=== PATIENT | female | born 1995 | race Caucasian/White ===

== ENCOUNTER 2018-09-26 22:13 | Inpatient (IN) | payer MEDICAID, OTHER ==
[~2018-09-26] VITALS: Ht 160 cm; Wt 75.7 kg
[2018-09-26 23:25] VITALS: BP 107/73
[2018-09-27 01:30] VITALS: BP 101/63
[2018-09-27] MEDS ORDERED: PLEASE ENTER HEIGHT AND WEIGHT MC SCH (01:30)
[2018-09-27] MEDS ORDERED: PLEASE ENTER ALLERGIES MC SCH (01:30)
[2018-09-27] MEDS ORDERED: hydrALAzine 20 MG/ML, 1ML IVPush PRN (01:30)
[2018-09-27] MEDS ORDERED: BISACODYL 10 MG SUPP PR PRN (01:30)
[2018-09-27] MEDS ORDERED: GABAPENTIN 300 MG CAPSULE PO PRN (01:30)
[2018-09-27] MEDS ORDERED: ONDANSETRON 2MG/ML, 2ML IVPush PRN (01:30)
[2018-09-27] MEDS ORDERED: DOCUSATE 100 MG CAPSULE PO PRN (01:30)
[2018-09-27] MEDS ORDERED: HYDROcodone/APAP 5/325 TABLET PO PRN (01:30)
[2018-09-27] MEDS ORDERED: morphine SULFATE 10 MG/ML, 1ML IVPush PRN (01:30)
[2018-09-27] MEDS ORDERED: ONDANSETRON ODT 4 MG PO PRN (01:30)
[2018-09-27] MEDS ORDERED: POLYETHYLENE GLYCOL 17 GM PACKET PO PRN (01:30)
[2018-09-27] MEDS: HEPARIN 5,000 UNITS/ML, 1ML SQ SCH ×3 (01:30→17:19)
[2018-09-27] MEDS ORDERED: ACETAMINOPHEN 325 MG TABLET ONE (01:43)
[2018-09-27] MEDS: SODIUM CHLORIDE 0.9% 1,000 ML IV SCH ×4 (01:55→23:15)
[2018-09-27] MEDS: ACETAMINOPHEN 325 MG TABLET PO PRN ×3 (01:55→21:50)
[2018-09-27] MEDS: CEFTRIAXONE PMX 1GM/50ML 50 ML IV SCH (02:04)
[2018-09-27 02:28] LABS: BASOPHILS # (AUTO) 0.01 x10^3/uL (0-0.1); BASOPHILS % (AUTO) 0 % (0-1); EOSINOPHILS % (AUTO) 0 % (1-7); LYMPHOCYTES # (AUTO) 0.71 x10^3/uL (1-3.4); LYMPHOCYTES % (AUTO) 10 % (22-44); MD NO; MEAN CORPUSCULAR HEMOGLOBIN 29.4 pg (27.0-34.8); MEAN CORPUSCULAR HGB CONC 34.1 g/dL (32.4-35.8); MEAN CORPUSCULAR VOLUME 86.3 fL (80-100); MEAN PLATELET VOLUME 8.2 fL (7.4-10.4); MONOCYTES # (AUTO) 0.35 x10^3/uL (0.2-0.8); MONOCYTES % (AUTO) 5 % (2-9); NEUTROPHILS # (AUTO) 5.84 x10^3/uL (1.8-6.8); NEUTROPHILS % (AUTO) 85 % (42-75); PLATELET COUNT 210 x10^3/uL (130-400); RED BLOOD COUNT 4.24 x10^6/uL (3.82-5.3); RED CELL DISTRIBUTION WIDTH 13.4 % (9.6-15.2)
[2018-09-27 02:40] LABS: ALBUMIN 3.2 g/dL (3.4-5.0); ANION GAP 9 mmol/L (5-15); CALCIUM 7.8 mg/dL (8.5-10.1); CHLORIDE 111 mmol/L (98-107)
[2018-09-27 02:43] LABS: ALANINE AMINOTRANSFERASE 13 U/L (12-78); ALKALINE PHOSPHATASE 46 U/L (45-117); BILIRUBIN,TOTAL 0.3 mg/dL (0.2-1.0); CHOL/HDL RATIO 2.5; CHOLESTEROL, TOTAL 142 mg/dL (140-239); CREATININE 0.82 mg/dL (0.55-1.02); HDL CHOL % 39 % (28-40); HDL CHOLESTEROL (DIRECT) 56 mg/dL (40-60); LDL CHOLESTEROL,CALCULATED 73 mg/dL (54-169); LDL/HDL RATIO 1.3 (0.5-3.0); TOTAL PROTEIN 6.2 g/dL (6.4-8.2); TRIGLYCERIDES 66 mg/dL (50-200); VLDL CHOLESTEROL 13 mg/dL (0-25)
[2018-09-27 02:45] LABS: CREATINE KINASE, TOTAL 50 U/L (26-192); FREE T4 (FREE THYROXINE) 1.11 ng/dL (0.76-1.46)
[2018-09-27 02:50] LABS: THYROID STIMULATING HORMONE 0.567 mIU/L (0.358-3.740)
[2018-09-27] MEDS ORDERED: SPIR25TA5 PO (02:59)
[2018-09-27] MEDS ORDERED: NORG1TAB27 PO (02:59)
[2018-09-27] MEDS ORDERED: L.AC1CAP6 PO (02:59)
[2018-09-27 03:28] VITALS: BP 107/67
[2018-09-27 06:56] VITALS: BP 102/95
[2018-09-27] MEDS ORDERED: MAGNESIUM SULFATE PMX 2GM/50ML 50 ML IV ONE (09:00)
[2018-09-27] MEDS ORDERED: POTASSIUM CHLORIDE 40 MEQ in SODIUM CHLORIDE 0.9% 500 ML IV ONE (09:00)
[2018-09-27] MEDS: METRONIDAZOLE PMX 500MG/100ML 100 ML IV SCH ×2 (09:10→17:18)
[2018-09-27] MEDS: MAGNESIUM CHLORIDE 70MG TAB DR PO SCH ×2 (09:16→21:49)
[2018-09-27 11:10] LABS: CLOSTRIDIUM DIFFICILE ANTIGEN NEGATIVE; CLOSTRIDIUM DIFFICILE TOXIN NEGATIVE (Negative)
[2018-09-27 13:16] LABS: HEMOGLOBIN A1C 5.1 % (4.2-6.3)
[2018-09-27 13:32] VITALS: BP 123/83
[2018-09-27 20:01] VITALS: BP 115/77
[2018-09-28] MEDS: METRONIDAZOLE PMX 500MG/100ML 100 ML IV SCH ×2 (01:10→09:04)
[2018-09-28 01:16] VITALS: BP 107/72
[2018-09-28] MEDS: HEPARIN 5,000 UNITS/ML, 1ML SQ SCH ×2 (01:30→09:05)
[2018-09-28] MEDS: CEFTRIAXONE PMX 1GM/50ML 50 ML IV SCH (02:19)
[2018-09-28 06:54] VITALS: BP 98/64
[2018-09-28 08:21] LABS: ANION GAP 6 mmol/L (5-15); CALCIUM 7.4 mg/dL (8.5-10.1); CHLORIDE 111 mmol/L (98-107); CREATININE 0.63 mg/dL (0.55-1.02)
[2018-09-28 08:29] LABS: BASOPHILS # (AUTO) 0.01 x10^3/uL (0-0.1); BASOPHILS % (AUTO) 0 % (0-1); EOSINOPHILS # (AUTO) 0.08 x10^3/uL (0-0.4); EOSINOPHILS % (AUTO) 2 % (1-7); LYMPHOCYTES # (AUTO) 1.49 x10^3/uL (1-3.4); LYMPHOCYTES % (AUTO) 34 % (22-44); MD NO; MEAN CORPUSCULAR HEMOGLOBIN 29.5 pg (27.0-34.8); MEAN CORPUSCULAR HGB CONC 34.1 g/dL (32.4-35.8); MEAN CORPUSCULAR VOLUME 86.6 fL (80-100); MEAN PLATELET VOLUME 8.2 fL (7.4-10.4); MONOCYTES # (AUTO) 0.48 x10^3/uL (0.2-0.8); MONOCYTES % (AUTO) 11 % (2-9); NEUTROPHILS % (AUTO) 53 % (42-75); PLATELET COUNT 177 x10^3/uL (130-400); RED BLOOD COUNT 3.64 x10^6/uL (3.82-5.3); RED CELL DISTRIBUTION WIDTH 13.2 % (9.6-15.2)
[2018-09-28] MEDS: MAGNESIUM CHLORIDE 70MG TAB DR PO SCH (09:04)
[2018-09-28] MEDS ORDERED: METR-142 PO (12:09)
[2018-09-28] MEDS ORDERED: ACET325T14 PO (12:09)
[2018-09-28] MEDS ORDERED: CEFD300C37 PO (12:09)
[2018-09-28] MEDS ORDERED: DOCU-131 PO (12:10)
[2018-09-28 12:50] VITALS: BP 96/66
== END 2018-09-28 14:00 | disposition home or self-care (01) | DRG 392 ==
LOC: 3NE 09-27 00:10 → DCLOUNGE 09-28 13:56
PROVIDERS: ADMIT Internal Medicine; ATTEND Internal Medicine
DX: K52.9 Noninfective gastroenteritis and colitis, unspecified (principal); E86.0 Dehydration; F44.5 Conversion disorder with seizures or convulsions; Z82.61 Family history of arthritis; E28.2 Polycystic ovarian syndrome; Z79.899 Other long term (current) drug therapy; Z91.018 Allergy to other foods; Z91.013 Allergy to seafood; Z91.048 Other nonmedicinal substance allergy status
CPT/HCPCS: 36415; 80048; 80053; 80061; 82550; 83036; 83735; 84439; 84443; 84703; 85025; 87040; 87046; 87324; 87427; G0378; J0696; J3480; J3475; J7030; J7040